=== PATIENT | female | born 1975 | race Caucasian/White ===

== ENCOUNTER 2020-09-10 09:22 | Inpatient (IN) | payer OTHER, SELFPAY ==
[2020-09-10] VITALS (15 sets, daily range): BP systolic 123–167; BP diastolic 74–130; PULSE 56–81; RESP 15–25; TEMP 36.1–36.7; O2SAT 97–100; BMI 44.3
[2020-09-10] MEDS: ONDANSETRON INJ 4 MG/2 ML VIAL IV PUSH (09:26)
[2020-09-10] MEDS: MORPHINE SULFATE (*CRX) 4 MG/ML INJ IV PUSH (09:26)
--- NOTE | 2020-09-10 09:28 | ED.CHESTPAIN ---
HPI - Chest Pain General Chief Complaint: Chest Pain Stated Complaint: Chest Pain Time Seen by Provider: 09/10/20 09:26 History of Present Illness HPI narrative: Patient is a 45-year-old female who presents ER with chest pain. Burning in center of her chest. No radiation. Associated with nausea and shortness of breath. Patient was driving to court when symptoms began. Reports increased stress due to this court date. No previous history of heart disease. Reports possible methamphetamine use yesterday. Related Data Allergies Allergy/AdvReac Type Severity Reaction Status Date / Time No Known Allergies Allergy Verified 09/10/20 09:35 Review of Systems Review of Systems: All systems reviewed & are unremarkable except as noted in HPI and below Constitutional: Constitutional: Denies chills, Denies fever(s) and Reports weakness ENT: Denies nasal congestion and Denies sore throat Cardiovascular: Cardiovascular: Reports chest pain, Denies rapid heart rate and Denies radiating jaw, neck or arm pain Respiratory: Respiratory: Denies cough, Reports dyspnea and Denies wheezing Gastrointestinal: Gastrointestinal: Denies abdominal pain, Denies diarrhea, Reports nausea and Denies vomiting PMFSH Past Medical History Medical History (Updated 09/10/20 @ 09:48 by Frank Abdalla MD) Healthy female adult Surgical History Surgical History (Updated 09/10/20 @ 09:32 by Frank Abdalla MD) No history of previous surgery Social History Social History (Updated 09/10/20 @ 09:32 by Frank Abdalla MD) Smoking status: Current every day smoker Alcohol intake: current Substance use type: amphetamines Exam Narrative: Exam Narrative: GENERAL: Well-appearing, well-nourished, and in no acute distress. HEAD: Normocephalic, atraumatic. EYES: PERRL and EOMI. ENT: Mucous membranes moist. CHEST: Clear to auscultation. No respiratory distress. HEART: Regular rate and rhythm. Normal peripheral pulses. ABDOMEN: Soft, nontender, nondistended. EXTREMITIES: Normal range of motion. No edema. SKIN: Warm, dry, no rash. NEURO: Alert and oriented x3. Course Course Emergency Course: Team alerted and have taken the patient. Patient given aspirin, heparin, and Brilinta. Additionally patient received morphine for pain and Zofran for nausea. Vital Signs Vital signs: Vital Signs Pulse Rate 62 09/10/20 09:25 Respiratory Rate 17 09/10/20 09:25 Blood Pressure 166/130 H 09/10/20 09:25 Pulse Oximetry 100 09/10/20 09:25 Pulse Rate 56 L 09/10/20 09:36 Respiratory Rate 17 09/10/20 09:25 Blood Pressure 166/130 H 09/10/20 09:25 Pulse Oximetry 100 09/10/20 09:25 MDM - Chest Pain ECG Data EKG #1: ECG completion date: 09/10/20 ECG completion time: 09:25 EKG Interpretation: bradycardia (59), sinus rhythm, ST depression (V2), ST elevation (II/III/aVF, V3-6), normal QRS, normal QT and NL axis Discharge Plan Discharge Clinical Impression: ST elevation (STEMI) myocardial infarction Patient Disposition: Still a Patient Condition: Serious
--- NOTE | 2020-09-10 09:31 | ECG_ITS ---
Measurements Intervals [place] Rate: 59 P: 50 MS: 190 QRS: 64 QRSD: 94 T: 96 QT: 447 QTc: 444 Interpretive Statements SINUS BRADYCARDIA INFERIOR ST ELEVATION MYOCARDIAL INFARCT- ACUTE POSTERIOR INFARCT, ACUTE ANTEROLATERAL ST ELEVATION MYOCARDIAL INJURY- ACUTE BASELINE ARTIFACT- I, II, III, AVR, AVL, AVF, V1-V2 ABNORMAL ECG Electronically Signed On 09-10-2020 11:47:08 CDT by Oumar Link D.O.
[2020-09-10] MEDS: TICAGRELOR 90 MG TABLET 180 MG PO (09:36)
--- NOTE | 2020-09-10 09:38 | PC.NURSE ---
937 Pt off floor to labor economist via cart. 927 Pt arrives via personal vehicle from triage, diaphoretic and pale, states she started feeling GERD-like symptoms ~0800 this am, was going to court appt but drove herself here instead. per EKG elevation noted in multiple leads, 100% RA, hypertensive. Pt states I did everything last night, drank all day, 2 packs of cigarettes, and I think I smoked meth
[2020-09-10 09:56] LABS: Basophils Absolute Auto 0.1 K/mm3 (0.0-0.1); Basophils Percent Auto 0.5 % (0.2-1.2); Eosinophils Absolute Auto 0.2 K/mm3 (0-0.3); Eosinophils Percent Auto 1.2 % (0-4.4); Hematocrit 46.1 % (37.0-47.0); Hemoglobin 15.3 g/dL (12.0-15.0); Immature Granulocyte Absolute 0.11 K/mm3 (0.00-0.031); Immature Granulocyte Percent A 0.8 % (0-0.5); Lymphocytes Absolute Auto 3.26 K/mm3 (0.9-3.2); Lymphocytes Percent Auto 22.4 % (18.3-44.2); Mean Corpuscular HGB Conc 33.2 g/dl (32-36); Mean Corpuscular Volume 87.5 fl (80-100); Mean Platelet Volume 9.5 fl (7.4-10.4); Monocytes Percent Auto 6.9 % (2.6-8.5); Neutrophils Absolute Auto 9.9 K/mm3 (1.3-6.7); Neutrophils Percent Auto 68.2 % (45.5-73.1); Platelet Count Result 373 k/mm3 (150-375); Red Blood Count 5.27 M/mm3 (4.2-5.4); Red Cell Distribution Width 13.5 % (11.5-14.5); White Blood Count 14.6 K/mm3 (4.5-10.0)
[2020-09-10 10:19] LABS: Troponin I < 0.012 ng/mL (0.000-0.034)
--- NOTE | 2020-09-10 10:19 | ECG_ITS ---
Measurements Intervals [place] Rate: 67 P: 54 [place]: 170 QRS: 56 QRSD: 101 T: -10 QT: 450 QTc: 476 Interpretive Statements SINUS RHYTHM WITH INTERMITTENT ACCELERATED IDIOVENTRICULAR RHYTHM INFERIOR INFARCT, PROBABLY RECENT ABNORMAL ECG Electronically Signed On 09-10-2020 11:53:19 CDT by Oumar Link D.O.
--- NOTE | 2020-09-10 10:26 | PM.IMHP ---
H&P: HPI History of Present Illness Date/Time: 09/10/20 10:26 Chief Complaint: chest pain Narrative: this is a 45-year-old woman I am seeing the emergency room very briefly as she is being prepared for emergency angiography in the setting of acute ST-elevation myocardial infarction. She began to experience sudden chest pain when she was in a outside of the court house this morning where she had an appearance to make and began to experience severe burning retrosternal chest pain. She presented to the emergency room after this was going on for couple of hours where ECG was clearly diagnostic of acute ST segment elevation NC in ST-elevation in the inferior lateral leads and reciprocal depression in the anterior precordial leads. Reports no previous history of cardiac problems and really has known medical problems what she tells me. The ER physician did obtain a history of the patient using methamphetamine. In this Setting and emergency angiography has been requested and STEMI protocol has been activated. she does have a history of cigarette smoking as well. Review of Systems Review of Systems: ROS unobtainable: Yes unobtainable due to medical condition [facility] Past Medical History Medical History (Updated 09/10/20 @ 09:48 by Frank Abdalla MD) Healthy female adult Surgical History Surgical History (Updated 09/10/20 @ 09:32 by Frank Abdalla MD) No history of previous surgery Social History Social History (Updated 09/10/20 @ 09:32 by Frank Abdalla MD) Smoking status: Current every day smoker Alcohol intake: current Substance use type: amphetamines Meds Home Medications and Allergies Allergies Allergy/AdvReac Type Severity Reaction Status Date / Time No Known Allergies Allergy Verified 09/10/20 09:35 Vital Signs Vital Signs - 24 hr 09/10/20 09:25 09/10/20 09:36 Pulse Rate 62 56 L Respiratory Rate 17 Blood Pressure 166/130 H Pulse Oximetry 100 Exam Const: General: in distress and uncomfortable Other: obese white female to hear full and very frightened regarding the current situation reporting severe retrosternal chest pain HENMT: Mouth: Yes moist mucous membranes Eyes: Sclera: sclerae normal Pupils: Equal, round and reactive pupils present Neck: Neck: supple Other: difficult to assess JVD given her body habitus. No carotid bruits are audible Resp: Effort & Inspection: normal respiratory effort Auscultation: clear to auscultation bilaterally Cardio: Rate: regular rate Rhythm: regular rhythm Other: PMI difficult to palpate S4 is heard , no murmur GI: GI Palp: Yes Soft to palpation Auscultation: normal bowel sounds Skin: General skin exam: normal color Neuro: Cognition (Neuro): normal cognition Extrem: General: normal to inspection H&P: Results Labs Labs: Short CBC 09/10/20 Range/Units 09:44 WBC 14.6 H (4.5-10.0) K/mm3 Hgb 15.3 H (12.0-15.0) g/dL Hct 46.1 (37.0-47.0) % Plt Count 373 (150-375) k/mm3 Cardiac Enzymes 09/10/20 Range/Units 09:44 Troponin I < 0.012 (0.000-0.034) ng/mL Assessment and Plan Additional Plan 45-year-old woman with: Previously healthy apparently history of methamphetamine ingestion and presenting with chest pain and acute ST segment elevation NC. Patient is being brought for emergency Angiography and revascularization. She was given aspirin and a loading dose of Brilinta emergency department. Getachew Gibbs MD [facility]
--- NOTE | 2020-09-10 10:31 | WPDCARDPROC ---
Cardiac Cath Procedure Note Date of procedure:: 09/10/20 Performing physician:: Getachew Gibbs MD Indication:: ST-elevation CA Brief clinical history:: this is a 45-year-old woman who is obese and smokes cigarettes chronically but does not have any other known medical problems. She presents to the hospital with chest pain beginning couple of hours before arrival and obvious ST-elevation CA. Procedure Procedure performed:: Emergency coronary angiography emergency PCI(JULIETTE) to the distal RCA left ventriculography Sedation/Medication given:: no sedation administered case start time 9:48 a.m. case end time 10:12 a.m. Access site:: right femoral artery Estimated blood loss:: 20-30 cc Procedure note:: patient was brought to the cardiac catheterization lab in the emergency setting described above. The femoral triangles were prepped and draped in the usual fashion. Anesthesia was provided in the right groin with 1% lidocaine infiltrated locally. Using modified Seldinger technique a 6 [place]an sheath was placed into the femoral artery. After this I used a 5 [place]an FL4 catheter to engage inject the left coronary artery. Following this I used a 5 [place]an JR4 guiding catheter to engage and inject the right coronary artery. Following this the cineangiograms were reviewed and PCI of the distal RCA was recommended and carried out as detailed below. Prior to PCI she was anticoagulated with bolus and infusion of Angiomax. She had received aspirin and a loading dose of Brilinta in the emergency department. Following reperfusion the patient did have some asymptomatic ventricular arrhythmias which were treated with amiodarone 150 mg IV bolus over 10 minutes. Following PCI as described below the guiding catheters were removed and a 5 [place]an angled pigtail catheter was used to measure left-sided hemodynamics and to injected left ventriculogram in the METCALF projection. After this the case was terminated the sheath was sutured into position she was taken to ICU room 6. For post CA PCI recovery in stable condition there was no procedural complications and there was no evidence of a groin hematoma upon leaving the floating labor gang supervisor. Findings:: Hemodynamics[place] [address] left ventricle 138 over 5 end-diastolic pressure 28. There is no gradient on pullback across the aortic valve. Left ventricle: The LV is mildly enlarged. The inferior posterior segment is akinetic the remainder of the LV is mildly globally hypodynamic. Global ejection fraction is about 45%. The left main coronary artery is nicely patent the left anterior descending is a moderate caliber artery extending down to the apex the LAD is smooth and angiographically normal in appearance the circumflex is a medium caliber artery giving rise to the marginal branches the circumflex and its branches are smooth and angiographically normal in appearance. The right coronary artery is moderate caliber dominant to the posterior circulation it is 100% occluded in the 3rd portion angiographic appearance is consistent with an appropriate about occlusion. Angiographically the vessel is normal prior to the occlusion. Intervention: The 6 [place]an JR4 guiding catheter was used to inject and engage the artery. The 0.014 BMW coronary guidewire was used to cross the occluded segment in the distal RCA. This was done easily and uneventfully. The lesion was then pre-dilated using a 2.5 x 20 mm emerge PTCA balloon. This restored JAIRO 3 flow in the vessel. After flow was restored the patient started having reperfusion arrhythmias which included significant amounts of ventricular tachycardia which was initially asymptomatic and then became more rapid and was complicated by hypotension. We were preparing to shock the patient to terminate the VT but then it slowed down and became hemodynamically stable again and the patient was not counter shocked. He was given any 150 mg for treatment of
--- NOTE | 2020-09-10 10:38 | ADMGEN ---
This patient, Sonia Mccord, was admitted to Intensive Care Unit-6. Patient/family oriented to hospital policies and general routines including ID bracelet, bed and alarms, visiting hours, pain management, procedures, bathroom and other care routines, personal items, smoking policy, room service/diet, and visiting hours. Information on how to activate the Rapid Response Team has been discussed. Patient/Family are encouraged to report perceived risks to care and to ask questions if they do not understand what they are told or what they should do.
--- NOTE | 2020-09-10 11:14 | WPDCNINT ---
Assessment and Plan Assessment and plan (1) ST elevation (STEMI) myocardial infarction: Code(s): I21.3 - ST elevation (STEMI) myocardial infarction of unspecified site Status: Acute Assessment and Plan: patient presented with chest pain, found to have ST elevations in the inferior leads in the ER, was taken to the optical laboratory manager where she had a PTCA/PCI with JULIETTE x1 to distal RCA. Was 45%. - patient currently chest pain-free - Cardiology following the patient, - continue aspirin, carvedilol, Brilinta, losartan, rosuvastatin (2) Tobacco dependence: Code(s): F17.200 - Nicotine dependence, unspecified, uncomplicated Status: Acute Assessment and Plan: patient has a history of tobacco use, counseled patient on cessation of smoking. She did state that she is going to quit (3) Alcohol abuse: Code(s): F10.10 - Alcohol abuse, uncomplicated Status: Acute Assessment and Plan: patient drinks about half to 1 pt of vodka or whiskey daily, she stated she is going to quit drinking - started on thiamine and folic acid, - will watch for alcohol withdrawal (4) Substance abuse: Code(s): F19.10 - Other psychoactive substance abuse, uncomplicated Status: Acute Assessment and Plan: patient has been taking marijuana and methamphetamines to which she says she is going to quit Additional Plan discussed with patient and her mother at bedside updated them with patient's condition and plan of care. I answered all questions. Code status : Full code Critical care time spent: 42 minutes. This dictation may have been done utilizing a voice recognition system. Attempts have been made to correct errors. However, there may be uncorrected grammatical, spelling, and recognition errors present. Due to a high probability of clinically significant, life threatening deterioration, the patient required my highest level of preparedness to intervene emergently and I personally spent this critical care time directly and personally managing the patient. This critical care time included obtaining a history; examining the patient; pulse oximetry; ordering and review of studies; arranging urgent treatment with development of a management plan; evaluation of patient's response to treatment; frequent reassessment; and discussions with other providers. It was exclusive of separately billable procedures and treating other patients and teaching time. Please see Assessment and Plan section and the rest of the note for further information on patient assessment and treatment Scenic Designer Consult Note Consult date: 09/10/20 Time Seen: 10:55 Reason for consult: STEMI, status/post PCI with stent times x1 to distal RCA, EF of 45% HPI: Sonia Mccord is a 45 year old female with history of tobacco abuse, alcohol abuse and substance use, no known cardiac history presented to the ED with complains of substernal burning chest pain 10/10 in intensity, associated with diaphoresis, shortness of breath, nausea. Patient was on her way to the court house which she experiences chest tightness/pain. so she drove to this of all these to get a bottle of water, and pains at significantly increased patient drove to ER at [facility]. EKG showed marked ST elevations in the inferior leads reciprocal T-wave inversions in the anterior leads. Patient was taken to a cardiac optical laboratory manager for emergency PTCA/PCI status post stent x1 to distal RCA, EF of 45%. after balloon dilatation patient went into a V-tach rhythm, initially was asymptomatic but then became more rapid and complicated with hypertension. Discussed with academic affairs manager and they were preparing to shock her with she stabilized hemodynamically. Patient was given amiodarone 150 mg IV x1. Patient's rhythm improved to sinus with PVCs. Patient was transferred to the ICU for further management patient seen and examined the ICU, above history was obtained was obtained from the umesh
[2020-09-10] MEDS: ASPIRIN 81 MG CHEWABLE TABLET PO (11:29)
[2020-09-10] MEDS: LOSARTAN POTASSIUM 25 MG TABLET PO (11:29)
[2020-09-10] MEDS: ROSUVASTATIN 10 MG TABLET PO (11:30)
[2020-09-10] MEDS: carvediloL 6.25 MG TABLET PO ×2 (11:30→20:47)
[2020-09-10 11:46] LABS: Add Urine Microscopic? YES; Appearance Urine Clear (Clear); Bilirubin Urine Negative (Negative); Blood Urine 3+ (Negative); Color Urine Yellow (Yellow); Glucose Urine UA Negative (Negative); Ketones Urine Negative (Negative); Leukocyte Esterase Ur 1+ LEU/UL (Negative); Mucus Urine Rare /lpf; Nitrate Urine Negative (Negative); Protein Urine Negative (Negative); Squamous Epithelial Cell Urine Occasional /hpf (Few); Urobilinogen Urine Negative mg/dL (<2.0)
[2020-09-10 11:49] LABS: Specific Grav Ur 1.031 (1.001-1.035)
[2020-09-10 12:09] LABS: Barbiturate Screen Urine Negative (Negative); Benzodiazepines Screen Urine Negative (Negative)
[2020-09-10 12:14] LABS: Cannabinoid Screen Urine Negative (Negative); Cocaine Screen Urine Negative (Negative); Methadone Screen Urine Negative (Negative); Opiate Screen Urine Positive (Negative); Phencyclidine Screen Urine Negative (Negative)
[2020-09-10 13:04] LABS: INR 1.1; Prothrombin Time 13.6 Seconds (11.1-14.7)
[2020-09-10] MEDS: THIAMINE HCL 100 MG TABLET PO (18:34)
[2020-09-10] MEDS: FOLIC ACID 1 MG TABLET PO (18:35)
[2020-09-10 19:17] LABS: Anion Gap 7 mmol/L (8-16); Blood Urea Nitrogen 11 mg/dL (7-17); Calcium 8.9 mg/dL (8.4-10.2); Carbon Dioxide 25 mmol/L (22-30); Chloride 102 mmol/L (98-107); Estimated CRCL calculation 116 ml/min; Estimated Glomerular Filt Rate > 60; Glucose 117 mg/dL (65-105); Potassium 3.7 mmol/L (3.4-5.0); Sodium 134 mmol/L (137-145)
[2020-09-10 19:32] LABS: Magnesium 1.9 mg/dL (1.6-2.3)
[2020-09-10] MEDS: TICAGRELOR 90 MG TABLET PO (20:47)
[2020-09-11] VITALS (14 sets, daily range): BP systolic 93–131; BP diastolic 55–80; PULSE 53–75; RESP 14–28; TEMP 36.6–37; O2SAT 96–99
--- NOTE | 2020-09-11 | ECHO_ITS ---
Patient Info Name: Sonia Mccord Age: 45 years : 1975 Gender: Female Ht: 65 in Wt: 215 lbs BSA: 2.16 m2 HR: 54 bpm BP: 115 / 63 mmHg Heart Rhythm: Sinus Rhythm Technical Quality: Fair Exam Date: 09/11/2020 11:47 AM Exam Location: [facility] Pulmonary Patient Status: Inpatient Admit Date: 09/10/2020 Staff Ordering Physician: Jennifer Adorno Electrical Checkout Mechanic: [place] Attending Provider: Getachew Gibbs MD Referring Physician: Tila PAUL; Exam Type: CA echo doppler color flow Study Info Indications I50.9 - Heart failure, unspecified Complete two-dimensional, color flow and Doppler transthoracic echocardiogram is performed. Summary 1. Complete two-dimensional, color flow and Doppler transthoracic echocardiogram is performed. 2. Left atrial chamber dimension is mildly enlarged. 3. Mildly dilated ventricle with normal wall thickness. Overall good systolic function with ejection fraction estimated to be 60-65%. However there is akinesis to basal septum and severe hypokinesis of the basal inferior wall. Normal diastolic function. 4. No significant valve disease. 5. Normal sinus rhythm. Left Ventricle Left ventricular chamber dimension is mildly enlarged. Left ventricular systolic function is normal, estimated at 60-65%. There is no increased left ventricular wall thickness. Left ventricular septal wall motion is normal. The left ventricular diastolic function is normal. Right Ventricle Right ventricular chamber dimension is normal. Right ventricular systolic function is normal. Left Atria Left atrial chamber dimension is mildly enlarged. Right Atria Right atrial chamber dimension is normal. Aortic Valve The aortic valve is trileaflet. There is no aortic valve sclerosis. There is no aortic valve stenosis. There is no aortic valve regurgitation. Pulmonic Valve The pulmonic valve is normal. There is no pulmonic valve stenosis. There is no pulmonic regurgitation. Mitral Valve The mitral valve has normal leaflets. There is no mitral valve stenosis. There is no mitral valve regurgitation. Tricuspid Valve The tricuspid valve leaflets are normal. There is no significant tricuspid valve stenosis. There is trace tricuspid valve regurgitation. No pulmonary hypertension, estimated pulmonary arterial systolic pressure is Empty. Pericardium/Pleural The pericardium appears normal. There is no pericardial effusion. Inferior Vena Cava Normal inferior vena cava with >50% collapse upon inspiration consistent with Empty right atrial pressure, Empty. Aorta The aortic root size at the sinus of Valsalva is normal. The prox ascending aorta size is normal. Left Ventricular Outflow Tract Name Value Normal LVOT 2D LVOT Diameter 1.9 cm LVOT Doppler LVOT Peak Gradient 3 mmHg LVOT Mean Gradient 2 mmHg LVOT VTI 21 cm LVOT VTI/AV VTI Ratio 0.6 LVOT Stroke Volume 60 ml LVOT CO 3.2 l/min
--- NOTE | 2020-09-11 05:11 | ECG_ITS ---
Measurements Intervals [place] Rate: 56 P: 51 SD: 170 QRS: 40 QRSD: 96 T: -57 QT: 451 QTc: 439 Interpretive Statements SINUS BRADYCARDIA INFERIOR INFARCT, PROBABLY RECENT WITH SIGNIFICANT T WAVE INVERSIONS ABNORMAL ECG Electronically Signed On 09-11-2020 10:11:10 CDT by Oumar Link D.O.
[2020-09-11 05:14] LABS: Basophils Absolute Auto 0.1 K/mm3 (0.0-0.1); Basophils Percent Auto 0.4 % (0.2-1.2); Eosinophils Absolute Auto 0.2 K/mm3 (0-0.3); Eosinophils Percent Auto 1.6 % (0-4.4); Hematocrit 43.6 % (37.0-47.0); Hemoglobin 14.2 g/dL (12.0-15.0); Immature Granulocyte Absolute 0.07 K/mm3 (0.00-0.031); Immature Granulocyte Percent A 0.6 % (0-0.5); Lymphocytes Absolute Auto 3.09 K/mm3 (0.9-3.2); Lymphocytes Percent Auto 25.2 % (18.3-44.2); Mean Corpuscular HGB Conc 32.6 g/dl (32-36); Mean Corpuscular Hemoglobin 29.1 pg (26-34); Mean Corpuscular Volume 89.3 fl (80-100); Mean Platelet Volume 9.6 fl (7.4-10.4); Monocytes Absolute Auto 0.9 K/mm3 (0.1-0.6); Monocytes Percent Auto 7.3 % (2.6-8.5); Neutrophils Absolute Auto 7.9 K/mm3 (1.3-6.7); Neutrophils Percent Auto 64.9 % (45.5-73.1); Platelet Count Result 320 k/mm3 (150-375); Red Blood Count 4.88 M/mm3 (4.2-5.4); Red Cell Distribution Width 13.6 % (11.5-14.5); White Blood Count 12.3 K/mm3 (4.5-10.0)
[2020-09-11 05:17] LABS: Anion Gap 4 mmol/L (8-16); Blood Urea Nitrogen 11 mg/dL (7-17); Calcium 8.8 mg/dL (8.4-10.2); Carbon Dioxide 28 mmol/L (22-30); Chloride 104 mmol/L (98-107); Estimated CRCL calculation 118 ml/min; Estimated Glomerular Filt Rate > 60; Glucose 104 mg/dL (65-105); Phosphorus 3.6 mg/dL (2.5-4.5); Potassium 4.1 mmol/L (3.4-5.0); Sodium 136 mmol/L (137-145)
[2020-09-11] MEDS: TOLNAFTATE 1% POWDER 45 GM BTL 1 APPLIC TOPICAL ×3 (07:29→20:50)
[2020-09-11] MEDS: carvediloL 6.25 MG TABLET PO ×2 (08:21→20:50)
[2020-09-11] MEDS: TICAGRELOR 90 MG TABLET PO ×2 (08:21→20:50)
[2020-09-11] MEDS: THIAMINE HCL 100 MG TABLET PO (08:21)
[2020-09-11] MEDS: FOLIC ACID 1 MG TABLET PO (08:21)
[2020-09-11] MEDS: ASPIRIN 81 MG CHEWABLE TABLET PO (08:22)
[2020-09-11] MEDS: LOSARTAN POTASSIUM 25 MG TABLET PO (08:22)
[2020-09-11] MEDS: ROSUVASTATIN 10 MG TABLET PO (08:22)
--- NOTE | 2020-09-11 11:19 | PM.PNCARD ---
Progress Note: A&P Assessment and Plan (1) ST elevation (STEMI) myocardial infarction: Code(s): I21.3 - ST elevation (STEMI) myocardial infarction of unspecified site <Jennifer Jeanette LEIDA Adorno - Last Filed: 09/11/20 14:43> Status: Acute <Jennifer KillianLEIDA díaz - Last Filed: 09/11/20 14:43> Assessment and Plan: Presented to the emergency department yesterday with complaints of severe retrosternal chest pain. EKG revealed acute inferior CA. Troponin peaked at 39. She was found to have an abrupt thrombotic occlusion of the distal 3rd portion of the RCA. This was treated successfully using 3.5 mm drug-eluting stent. she was started on aspirin, Brilinta, rosuvastatin, losartan, carvedilol. Today, she is doing extremely well and is denying any chest pain. <LEIDA Espinoza - Last Filed: 09/11/20 14:43> (2) Substance abuse: Code(s): F19.10 - Other psychoactive substance abuse, uncomplicated <Jennifer SheelaLEIDA Leija - Last Filed: 09/11/20 14:43> Status: Acute <LEIDA Espinoza - Last Filed: 09/11/20 14:43> Assessment and Plan: Discussed importance of abstaining from illicit drug use. <LEIDA Espinoza - Last Filed: 09/11/20 14:43> (3) Alcohol abuse: Code(s): F10.10 - Alcohol abuse, uncomplicated <LEIDA Espinoza - Last Filed: 09/11/20 14:43> Status: Acute <LEIDA Espinoza - Last Filed: 09/11/20 14:43> Assessment and Plan: Per the patient she drinks alcohol every other day. She states that she drinks a half a pt to 1 pt of liquor every other day. Apparently, in the past she had been drinking as much as two fifths of liquor every day. I discussed with her the negative impact of alcohol on her health. Counseled her on abstaining from alcohol. <LEIDA Espinoza - Last Filed: 09/11/20 14:43> (4) Tobacco dependence: Code(s): F17.200 - Nicotine dependence, unspecified, uncomplicated <LEIDA Espinoza - Last Filed: 09/11/20 14:43> Status: Acute <LEIDA Espinoza - Last Filed: 09/11/20 14:43> Assessment and Plan: Current smoker. Patient states that she would like to quit smoking and has been successful with quitting using Chantix. She would like to use Chantix again to quit. I will provide her with some Chantix samples from the office. <LEIDA Espinoza - Last Filed: 09/11/20 14:43> Additional Plan Patient states that over the past year she has been noticing lower extremity edema. She thought this was probably caused by her heavy alcohol use. Upon further questioning she also reveals that she has paroxysmal nocturnal dyspnea as well as 2-3 pillow orthopnea. I have ordered an echocardiogram to assess her systolic function. <LEIDA Espinoza - Last Filed: 09/11/20 14:43> patient seen and examined, chart reviewed. Agree with nurse practitioner Jennifer Adorno's assessment and plan. Feels well today and ambulated in the halls with no shortness of breath or chest pain. Lungs clear, no murmur, catheterization site is fine. Labs reviewed. Patient is doing well after her STEMI and RCA stent yesterday. Counseled patient about the need for dual anti-platelet therapy, tobacco cessation, etc.. Hopefully discharge tomorrow. <Tierra Olivera MD - Last Filed: 09/11/20 19:21> Time Spent With Patient Time with patient: 15 - 25 minutes <LEIDA Espinoza - Last Filed: 09/11/20 14:43> Subjective Date/time seen: Cardiology follow up for STEMI Date of service 09/11/20: Patient states she is feeling fantastic today. She says that feeling with a she does today makes her realize how poorly she had been feeling before she came into the hospital and just did not recognize it. She denies any chest pain, shortness of breath, palpitations. she has lots of questions about her diet as well as smoking cessation. I spent a great deal of ti
--- NOTE | 2020-09-11 12:30 | WPDINTPN ---
Progress Note: A&P Assessment and Plan (1) ST elevation (STEMI) myocardial infarction: Code(s): I21.3 - ST elevation (STEMI) myocardial infarction of unspecified site Status: Acute Assessment and Plan: patient presented with chest pain, found to have ST elevations in the inferior leads in the ER, was taken to the photofinishing laboratory worker where she had a PTCA/PCI with JULIETTE x1 to distal RCA. Was 45%. - patient currently chest pain-free - Cardiology following the patient, - continue aspirin, carvedilol, Brilinta, losartan, rosuvastatin (2) Tobacco dependence: Code(s): F17.200 - Nicotine dependence, unspecified, uncomplicated Status: Acute Assessment and Plan: patient has a history of tobacco use, counseled patient on cessation of smoking. She did state that she is going to quit (3) Alcohol abuse: Code(s): F10.10 - Alcohol abuse, uncomplicated Status: Acute Assessment and Plan: patient drinks about half to 1 pt of vodka or whiskey daily, she stated she is going to quit drinking - started on thiamine and folic acid, - will watch for alcohol withdrawal (4) Substance abuse: Code(s): F19.10 - Other psychoactive substance abuse, uncomplicated Status: Acute Assessment and Plan: patient has been taking marijuana and methamphetamines to which she says she is going to quit Additional Plan discussed with patient and her mother at bedside updated them with patient's condition and plan of care. I answered all questions. Code status : Full code Critical care time spent:31 minutes. This dictation may have been done utilizing a voice recognition system. Attempts have been made to correct errors. However, there may be uncorrected grammatical, spelling, and recognition errors present. Due to a high probability of clinically significant, life threatening deterioration, the patient required my highest level of preparedness to intervene emergently and I personally spent this critical care time directly and personally managing the patient. This critical care time included obtaining a history; examining the patient; pulse oximetry; ordering and review of studies; arranging urgent treatment with development of a management plan; evaluation of patient's response to treatment; frequent reassessment; and discussions with other providers. It was exclusive of separately billable procedures and treating other patients and teaching time. Please see Assessment and Plan section and the rest of the note for further information on patient assessment and treatment Subjective Date/time seen: 09/11/20 12:30 Interval history: Reason for consult: STEMI, status/post PCI with stent times x1 to distal RCA, EF of 45% 09/11/20: Pt seen and examined. Pt denies any chest pain, SOB, N/V. minimal PVCs on tele monitor. Good UO, Afebrile, and hemodynamically stable. Review of Systems Review of Systems: All systems reviewed & are unremarkable except as noted in HPI and below Exam Const: General: comfortable and no acute distress HENMT: Mouth: Yes moist mucous membranes Eyes: Sclera: sclerae normal Pupils: Equal, round and reactive pupils present Neck: Neck: supple Thyroid: thyroid normal Lymphatic: lymphadenopathy not noted Resp: Effort & Inspection: normal respiratory effort Auscultation: clear to auscultation bilaterally Cardio: Rate: regular rate Rhythm: regular rhythm GI: Inspection: non-distended GI Palp: Yes Soft to palpation and No Tenderness to palpation present (GI) Auscultation: normal bowel sounds Other: obese : Other: deferred Skin: General skin exam: normal color and no rashes or lesions noted Neuro: Cranial nerves: Yes Equal, round and reactive pupils present Other: patient is awake, alert, oriented x3, nonfocal Extrem: General: normal to inspection, no edema and no pedal edema Other: Right groin site witih no evidence of ecchymosis or hematoma Psych: Men
--- NOTE | 2020-09-11 17:06 | PC.NURSE ---
Patient transferred to room 203, report to Anaya DENNIS. All belongings sent with patient
[2020-09-12] VITALS (17 sets, daily range): BP systolic 90–123; BP diastolic 50–87; PULSE 54–85; RESP 16–19; TEMP 36.3–37.2; O2SAT 93–100
--- NOTE | 2020-09-12 | ECHO_ITS ---
Patient Info Name: Sonia Mccord Age: 45 years : 1975 Gender: Female Ht: 65 in Wt: 254 lbs BSA: 2.36 m2 HR: 75 bpm BP: 102 / 62 mmHg Heart Rhythm: Sinus Rhythm Technical Quality: Good Exam Date: 09/12/2020 1:45 PM Exam Location: [facility] Patient Status: Inpatient Admit Date: 09/10/2020 Staff Ordering Physician: Jennifer Adorno Pig Iron Loader: Corey Spann RDCS, RT Attending Provider: Getachew Gibbs MD Referring Physician: Tila PAUL; Exam Type: CA echo doppler color flow Study Info Indications I50.9 - Heart failure, unspecified Complete two-dimensional, color flow and Doppler transthoracic echocardiogram is performed. Summary 1. Complete two-dimensional, color flow and Doppler transthoracic echocardiogram is performed. 2. Left ventricular chamber dimension is normal. 3. Left ventricular systolic function is normal, estimated at 65-70%. 4. There is mildly increased left ventricular wall thickness. 5. The left ventricular diastolic function is normal. 6. The basal inferior wall is hypokinetic. 7. Very frequent PVCs. Left Ventricle Left ventricular chamber dimension is normal. Left ventricular systolic function is normal, estimated at 65-70%. There is mildly increased left ventricular wall thickness. The left ventricular diastolic function is normal. The basal inferior wall is hypokinetic. All other roy appear normal. Right Ventricle Right ventricular chamber dimension is normal. Right ventricular systolic function is normal. Left Atria Left atrial chamber dimension is normal. Right Atria Right atrial chamber dimension is normal. Atrial Septum Intact interatrial septum visualized by color flow imaging. Aortic Valve The aortic valve is trileaflet. There is no aortic valve sclerosis. There is no aortic valve stenosis. There is trace aortic valve regurgitation. Pulmonic Valve The pulmonic valve is normal. There is no pulmonic valve stenosis. There is trace pulmonic regurgitation. Mitral Valve The mitral valve has normal leaflets. There is no mitral valve stenosis. There is trace mitral valve regurgitation. Tricuspid Valve The tricuspid valve leaflets are normal. There is no significant tricuspid valve stenosis. There is trace tricuspid valve regurgitation. Other Findings Very frequent PVCs. Pericardium/Pleural The pericardium appears normal. There is no pericardial effusion. Inferior Vena Cava Dilated inferior vena cava with <50% collapse upon inspiration consistent with elevated right atrial pressure, 10 mmHg. Aorta The aortic root size at the sinus of Valsalva is normal. The prox ascending aorta size is normal. Left Ventricular Outflow Tract Name Value Normal LVOT 2D LVOT Diameter 2.1 cm LVOT Doppler LVOT Peak Gradient 3 mmHg LVOT Mean Gradient 2 mmHg LVOT VTI 30 cm LVOT VTI/AV VTI Ratio 0.7 LVOT Stroke Volume 103 ml LVOT CO
[2020-09-12 05:01] LABS: Cholesterol 140 mg/dL (0-200); HDL Direct 36 mg/dL; Triglycerides 178 mg/dL (<150)
[2020-09-12 05:11] LABS: LDL Cholesterol Direct 70 mg/dL
--- NOTE | 2020-09-12 08:14 | ECG_ITS ---
Measurements Intervals [place] Rate: 68 P: 60 WA: 177 QRS: 29 QRSD: 100 T: -59 QT: 464 QTc: 495 Interpretive Statements SINUS RHYTHM VENTRICULAR COUPLETS AND VENTRICULAR PREMATURE COMPLEXES INFERIOR INFARCT, PROBABLY RECENT WITH SIGNIFICANT T WAVE INVERSIONS ABNORMAL ECG Electronically Signed On 09-12-2020 9:46:43 CDT by Oumar Link D.O.
--- NOTE | 2020-09-12 08:30 | WPDMODSED ---
Moderate Sedation Note-Pt Data Patient Data Allergies Allergy/AdvReac Type Severity Reaction Status Date / Time No Known Allergies Allergy Verified 09/10/20 10:50 Home Medications Medication Instructions Recorded Confirmed Type omeprazole 20 mg PO DAILY 09/10/20 09/10/20 History Current Medications: Active Medications Aspirin (Aspirin 81 Mg Chewable Tablet) 81 mg PO DAILY@0800 [facility] Last Admin: 09/12/20 08:34 Dose: 81 mg Documented by: Carvedilol (Carvedilol 6.25 Mg Tablet) 6.25 mg PO Q12HR [facility] Last Admin: 09/11/20 20:50 Dose: 6.25 mg Documented by: Folic Acid (Folic Acid 1 Mg Tablet) 1 mg PO DAILY [facility] Stop: 09/14/20 09:01 Last Admin: 09/11/20 08:21 Dose: 1 mg Documented by: Lidocaine HCl/Dextrose (Lidocaine Hck In D5w 4mg/Ml) 2 gm in 500 mls @ 30 mls/hr IV CONT .[id number] [facility] Losartan Potassium (Losartan Potassium 25 Mg Tablet) 25 mg PO DAILY [facility] Last Admin: 09/11/20 08:22 Dose: 25 mg Documented by: Nitroglycerin (Nitroglycerin Sl 0.4 Mg Tablet) 0.4 mg SUBLINGUAL Q5MIN PRN PRN Reason: Chest Pain Rosuvastatin Calcium (Rosuvastatin 10 Mg Tablet) 10 mg PO DAILY [facility] Last Admin: 09/11/20 08:22 Dose: 10 mg Documented by: Thiamine HCl (Thiamine Hcl 100 Mg Tablet) 100 mg PO QAM [facility] Stop: 09/14/20 09:01 Last Admin: 09/11/20 08:21 Dose: 100 mg Documented by: Ticagrelor (Ticagrelor 90 Mg Tablet) 90 mg PO Q12HR [facility] Last Admin: 09/12/20 08:34 Dose: 90 mg Documented by: Tolnaftate (Tolnaftate 1% Powder 45 Gm Btl) 1 applic TOPICAL Q12HR [facility] Last Admin: 09/11/20 20:50 Dose: 1 applic Documented by: Sedation/Anesthesia: No previous sedation/anesthesia problems (including family history). [facility] Past Medical History Medical History Healthy female adult Surgical History Surgical History No history of previous surgery Social History Social History (Updated 09/10/20 @ 09:32 by Frank Abdalla MD) Smoking packs per day: 1 Smoking cigarettes per day: 20.0 Years smoked: 15 Smoking pack-years: 15.00 Smoking status: Current every day smoker Tobacco type: cigarettes Alcohol intake: current Substance use: current Substance use type: marijuana and methamphetamine Other substance usage details: pint vodka daily; occasional marijuana use, 2 years on/off meth Gender identity (if verbalized by the patient): Female Sexual Orientation (if Verbalized by the Patient): Straight or Heterosexual Spiritual care concerns: No Mod Sed Physical Exam Physical Exam Pre Procedural Exam: Normal: Appearance, Eyes, Ears, Nose, Neck, Throat, Airway, Lungs, Heart Size, Heart Rate, Heart Rhythm, Neuro Exam, Abdomen, Liver, Kidneys, Spleen, Breasts, Genitalia, Extremities and Skin Hours since solid foods: 8 Hours since liquid intake: 8 Internal Medicine - PN: Obj Da Vital Signs Vital Signs: Vital Signs - 24 hr 09/11/20 12:00 09/11/20 14:00 09/11/20 16:00 Temperature 36.6 C 37.0 C Pulse Rate 58 L 65 68 Respiratory Rate 14 16 Blood Pressure 96/60 L 102/67 Pulse Oximetry 98 97 09/11/20 18:00 09/11/20 20:00 09/11/20 20:50 Temperature 36.8 C Pulse Rate 64 56 L 63 Respiratory Rate 16 Blood Pressure 96/55 L Pulse Oximetry 99 09/11/20 22:00 09/12/20 00:00 09/12/20 02:00 Temperature 36.3 C L Pulse Rate 70 58 L 58 L Respiratory Rate 16 Blood Pressure 90/50 L Pulse Oximetry 100 09/12/20 04:00 09/12/20 06:00 09/12/20 08:00 Temperature 36.8 C 36.5 C Pulse Rate 64 59 L 54 L Respiratory Rate 16 16 Blood Pressure 97/65 L 111/55 L Pulse Oximetry 100 99 Intake/Output Intake/Output: Intake & Output 09/09/20 09/10/20 09/11/20 09/12/20 23:59 23:59 23:59 23:59 Intake Total 290 1330 870 Output Total 800 Balance -510 1330 870 Meds/Results Medications: Active Medications Generic Name Dose Route Start Last Admin Trade
--- NOTE | 2020-09-12 08:30 | WPDHPUPDATE1 ---
History and Physical Update Update Date/Time: 09/12/20 830am History and Physical has been reviewed, including an updated exam of the patient. There are NO changes in the patient's condition. Risks, benefits, and alternatives have been discussed and questions answered. Patient agrees to proceed with procedure.
[2020-09-12] MEDS: TICAGRELOR 90 MG TABLET PO (08:34)
[2020-09-12] MEDS: ASPIRIN 81 MG CHEWABLE TABLET PO (08:34)
[2020-09-12 08:55] LABS: Anion Gap 8 mmol/L (8-16); Blood Urea Nitrogen 13 mg/dL (7-17); Calcium 8.8 mg/dL (8.4-10.2); Carbon Dioxide 24 mmol/L (22-30); Chloride 102 mmol/L (98-107); Estimated CRCL calculation 113 ml/min; Estimated Glomerular Filt Rate > 60; Glucose 99 mg/dL (65-105); Magnesium 2.1 mg/dL (1.6-2.3); Potassium 4.1 mmol/L (3.4-5.0); Sodium 134 mmol/L (137-145)
[2020-09-12] MEDS: MAGNESIUM SULF 2 GM/WATER 50ML 2 GM/50 ML BAG IVPB (09:00)
--- NOTE | 2020-09-12 09:20 | PM.PNCARD ---
Progress Note: A&P Additional Plan 1- Inferior STEMI 2- recurrent nonsustained ventricular tachycardia this morning 3- tobacco use 4- alcohol abuse this morning patient had torsade de pointes and frequent nonsustained ventricular contractions. She has mild chest discomfort. EKG shows deep T inversions inferior leads with prolonged QTC interval which is unchanged from the EKG done after the cardiac catheterization. I was on bedside observing the EKG. Her serum potassium 4.1 and magnesium 2.1. It due to this recurrent ventricular tachycardia, concern about occlusion of the stent. Risks and benefits of cardiac catheterization discussed with the patient she agrees to proceed. meanwhile we will administer IV lidocaine and plan to transition to p.o. mexilitine. Time Spent With Patient Time with patient: Greater than 35 minutes Subjective Date/time seen: 09/12/20 09:20 Interval history: Reason for consult: STEMI, status/post PCI with stent times x1 to distal RCA, EF of 45% 09/11/20: Pt seen and examined. Pt denies any chest pain, SOB, N/V. minimal PVCs on tele monitor. Good UO, Afebrile, and hemodynamically stable. date of service 09/12/2020- this morning she has been having very frequent premature ventricular contractions. She had 1 episode of torsade de [place]. she is feeling funny in her chest. She is very anxious. EKG shows deep T inversions in the inferior leads and prolonged QTC interval. Review of Systems Review of Systems: ROS unobtainable: Yes unobtainable due to medical condition Constitutional: Constitutional: Denies fatigue, Denies headache(s), Denies lethargy and Denies weakness Eyes: Eyes: Denies change in vision ENT: Reports Normal hearing present, Denies headache(s) and Denies neck pain Cardiovascular: Cardiovascular: Reports chest pain, Reports pedal edema, Reports leg edema, Denies lightheadedness, Reports palpitations, Denies dyspnea and Denies dyspnea on exertion Respiratory: Respiratory: Denies dyspnea and Denies dyspnea on exertion Gastrointestinal: Gastrointestinal: Denies abdominal pain Genitourinary: Genitourinary: Denies pelvic pain Musculoskeletal: Musculoskeletal: Denies back pain and Denies neck pain Integumentary/Breasts: Skin/Breast: Reports pruritus Neurologic: Reports Normal hearing present, Denies headache(s) and Denies weakness Psychiatric: Psychiatric: Denies anxiety and Denies depression Endocrine: Endocrine: Denies fatigue and Reports palpitations Hematologic/Lymphatic: Hematologic/Lymphatic: Denies easy bleeding and Denies easy bruising Exam Const: General: in distress and uncomfortable Other: obese white female to hear full and very frightened regarding the current situation reporting severe retrosternal chest pain HENMT: Mouth: Yes moist mucous membranes Eyes: Sclera: sclerae normal Pupils: Equal, round and reactive pupils present Neck: Neck: supple Other: difficult to assess JVD given her body habitus. No carotid bruits are audible Resp: Effort & Inspection: normal respiratory effort Auscultation: clear to auscultation bilaterally Cardio: Rhythm: abnormal rhythm Heart sounds: no murmurs Other: PMI difficult to palpate S4 is heard , no murmur GI: Auscultation: normal bowel sounds Skin: General skin exam: normal color Rashes: rashes noted Other: R groin catheter insertion site is free from any redness, swelling, pain, hematoma, bleeding. Neuro: Cranial nerves: Yes Equal, round and reactive pupils present and Yes Normal hearing present Cognition (Neuro): normal cognition Speech: normal speech Extrem: General: normal to inspection, no edema and no pedal edema Psych: Mental Status: mental status grossly normal Affect: normal affect Objective Data Vital Signs Vital Signs: Vital Signs - 24 hr 09/11/20 10:00 09/11/20 12:00 09/11/20 14:00 Temperature 36.6 C Pulse Rate 72 58 L 65 Respiratory Rate 16 14 Blood Pressure 115/63 96/60 L Pulse
--- NOTE | 2020-09-12 09:23 | PC.NURSE ---
Cardiopulmonary Rehab Services flyer was given to patient in cardiac admissions folder.
--- NOTE | 2020-09-12 10:15 | WPDCARDPROC ---
Cardiac Cath Procedure Note Date of procedure:: 09/12/20 Performing physician:: Queenie García MD Date of service September 12, 2020 Indication:: recurrent ventricular tachycardia and torsade de pointes Brief clinical history:: this is 45-year-old lady who was admitted to the hospital with inferior STEMI and underwent stenting to distal RCA. This morning there were lots of ventricular is tachycardia and torsade de pointes. EKG shows deep T inversions inferior leads with prolonged QT interval. Electrolytes were unremarkable. Risks and benefits of cardiac catheterization discussed with the patient she agrees to proceed. Procedure Procedure performed:: 1-Moderate sedation that started at 9:42 a.m.and ended at 10:03 a.m. total duration 21 minutesusing 2mg of Versed and 50mcg fentanyl. The registered nurse was alexa grove 2-Selective left and right coronary angiogram. 3-Left heart catheterization with measurement of LVEDP and measurement of gradient across aortic valve. 4-Right common femoral arterial angiogram. 5-Deployment of 6 [place] Angio-Seal. Sedation/Medication given:: Moderate sedation. Access site:: Right common femoral artery. Estimated blood loss:: 10cc Procedure note:: After informed consent patient was brought in to label tacker with the was draped and prepped in usual manner. Moderate sedation was given and the right groin was infiltrated using 1% lidocaine. Five Danish sheath was obtained using micropuncture needle and the modified Seldinger technique. Selective left coronary angiogram was done using JL4 catheter with the tip of the catheter placed in the left main coronary artery. Selective right coronary angiogram was done using JR4 catheter with the tip of the catheter placed to the right coronary artery. After that the [id number] was advanced across the aortic valve into the left ventricle with measurement of LVEDP and measurement of gradient across aortic valve. Right common femoral arterial angiogram was done. Findings:: 1- left coronary artery is a large artery that divides into large LAD, large circumflex artery. Left main is free of disease. 2- left anterior descending artery is a large artery that runs and wraps around the apex. Free of disease. Medium-sized diagonal branch free of disease. 3- leftcircumflex artery is a large artery Free of disease. Large OM1 branch free of disease. 4- right coronary artery is Large artery and dominant and has patent stent distally. There was catheter-induced vasospasm proximally that resolved after repositioning the catheter. 5- LVEDP was 10 mm Hg and no gradient across aortic valve. 6- opening arterial pressure was 120/80 and closing pressure was 110/70 7- right femoral artery angiogram shows no significant disease in the right common femoral artery. Conclusion:: patent stent in the distal RCA and otherwise no CAD. the recurrent ventricular tachycardia is not related to occluded stent. Assessment and Plan Additional Plan 1- Recommend starting patient on lidocaine drip and transition to mexiletine tomorrow. 2- titrate beta-toshia 3- continue aspirin and Brilinta
[2020-09-12] MEDS: TOLNAFTATE 1% POWDER 45 GM BTL 1 APPLIC TOPICAL (10:41)
[2020-09-12] MEDS: FOLIC ACID 1 MG TABLET PO (11:11)
[2020-09-12] MEDS: PANTOPRAZOLE 40 MG TABLET PO (11:11)
[2020-09-12] MEDS: SODIUM CHLORIDE 0.9% IV 1,000 ML 100 ML IV CONT (11:11)
--- NOTE | 2020-09-12 12:23 | WPDINTPN ---
Progress Note: A&P Assessment and Plan (1) Nonsustained ventricular tachycardia: Code(s): I47.2 - Ventricular tachycardia Status: Acute Assessment and Plan: on 09/12/2020 patient developed VTACH and Torsades. she was taken to the laboratory operations coordinator for repeat angiogram, found to have patent distal RCA stent. No coronary artery disease otherwise. - patient was started on lidocaine infusion - cardiology following closely - will switch lidocaine infusion to mexiletine in a.m. tomorrow per nuclear monitoring technician (2) ST elevation (STEMI) myocardial infarction: Code(s): I21.3 - ST elevation (STEMI) myocardial infarction of unspecified site Status: Acute Assessment and Plan: patient presented with chest pain, found to have ST elevations in the inferior leads in the ER, was taken to the laboratory operations coordinator where she had a PTCA/PCI with JULIETTE x1 to distal RCA. Was 45%. - patient currently chest pain-free - Cardiology following the patient, - continue aspirin, carvedilol, Brilinta, losartan, rosuvastatin (3) Tobacco dependence: Code(s): F17.200 - Nicotine dependence, unspecified, uncomplicated Status: Acute Assessment and Plan: patient has a history of tobacco use, counseled patient on cessation of smoking. She did state that she is going to quit (4) Alcohol abuse: Code(s): F10.10 - Alcohol abuse, uncomplicated Status: Acute Assessment and Plan: patient drinks about half to 1 pt of vodka or whiskey daily, she stated she is going to quit drinking - started on thiamine and folic acid, - will watch for alcohol withdrawal (5) Substance abuse: Code(s): F19.10 - Other psychoactive substance abuse, uncomplicated Status: Acute Assessment and Plan: patient has been taking marijuana and methamphetamines to which she says she is going to quit Additional Plan discussed with patient and her mother at bedside updated them with patient's condition and plan of care. I answered all questions. Code status : Full code Critical care time spent: 33 minutes. This dictation may have been done utilizing a voice recognition system. Attempts have been made to correct errors. However, there may be uncorrected grammatical, spelling, and recognition errors present. Due to a high probability of clinically significant, life threatening deterioration, the patient required my highest level of preparedness to intervene emergently and I personally spent this critical care time directly and personally managing the patient. This critical care time included obtaining a history; examining the patient; pulse oximetry; ordering and review of studies; arranging urgent treatment with development of a management plan; evaluation of patient's response to treatment; frequent reassessment; and discussions with other providers. It was exclusive of separately billable procedures and treating other patients and teaching time. Please see Assessment and Plan section and the rest of the note for further information on patient assessment and treatment Subjective Date/time seen: 09/12/20 12:23 Interval history: Reason for consult: STEMI, status/post PCI with stent times x1 to distal RCA, EF of 45% 09/12/20: Pt had transferred to IMU on 09/11/2020 and this morning developed VTACH and Torsades. Patient was taken to the laboratory operations coordinator for repeat angiogram, found to have patent distal RCA stent. No coronary artery disease otherwise. patient continues to intermittent ectopy and short runs V-tach. Hemodynamically stable, denies any chest pain, shortness of breath, nausea vomiting. Urine output has been adequate Review of Systems Review of Systems: All systems reviewed & are unremarkable except as noted in HPI and below Exam Const: General: comfortable and no acute distress HENMT: Mouth: Yes moist mucous membranes Eyes: Sclera: sclerae normal Pupils: Equal, round and reactive pupils present Neck: Neck:
[2020-09-12] MEDS: ACETAMINOPHEN 500 MG TABLET 1000 MG PO (12:26)
[2020-09-12] MEDS: carvediloL 6.25 MG TABLET PO (12:43)
[2020-09-12] MEDS: ROSUVASTATIN 10 MG TABLET PO (12:43)
[2020-09-12] MEDS: LOSARTAN POTASSIUM 25 MG TABLET PO (12:43)
[2020-09-12] MEDS: THIAMINE HCL 100 MG TABLET PO (12:43)
--- NOTE | 2020-09-12 14:47 | PM.TDS ---
Transfer Discharge Sum: Prov Provider Date of admission: 09/10/20 09:30 Primary care physician: UNKNOWN,DOCTOR Admitting clinician: Getachew Gibbs MD Consults: 09/10/20 10:19 Cardiopulmonary Rehabilitation Consult Routine Comment: Consult Plan: Evaluate for Eligibility 09/12/20 13:10 Consult to Physician Routine Comment: Consulting Provider: Ashanti Garnica physically impaired teacher/MD group to consult: roto rooter operator Reason for consultation: icu transfer Has provider been notified: Yes DS: Admitting Diagnosis Admitting Diagnosis Admitting Diagnosis: Chest pain DS: Discharge Diagnosis Discharge Diagnosis (1) ST elevation (STEMI) myocardial infarction: Code(s): I21.3 - ST elevation (STEMI) myocardial infarction of unspecified site Status: Acute Assessment and Plan: Presented to the emergency department yesterday with complaints of severe retrosternal chest pain. EKG revealed acute inferior AK. Troponin peaked at 39. She was found to have an abrupt thrombotic occlusion of the distal 3rd portion of the RCA. This was treated successfully using 3.5 mm drug-eluting stent. She was started on aspirin, Brilinta, rosuvastatin, losartan, carvedilol. Today, she developed ventricilar tachycardia and Torsades de pointes and was taken to the geophysical laboratory director to assess for any stent occlusion of which none was found. (2) Nonsustained ventricular tachycardia: Code(s): I47.2 - Ventricular tachycardia Status: Acute Assessment and Plan: This morning, ventricular tachycardia and Torsades de pointes was noted on telemetry. She also began to have very frequent ectopy, frequent PVCs. An EKG was performed that demonstrated sinus rhythm with very frequent PVCs, prolonged QT interval. She returned to the geophysical laboratory director to assess for any occlusion of her recently placed stent. The stent was patent. She was initiated on a lidocaine drip however she continued to have frequent runs of ventricular tachycardia on the lidocaine drip. The longest run of VT was 26 beats. She was then initiated on mexiletine. [facility] has been initiated. (3) Substance abuse: Code(s): F19.10 - Other psychoactive substance abuse, uncomplicated Status: Acute Assessment and Plan: Discussed importance of abstaining from illicit drug use. (4) Alcohol abuse: Code(s): F10.10 - Alcohol abuse, uncomplicated Status: Acute Assessment and Plan: Per the patient she drinks alcohol every other day. She states that she drinks a half a pt to 1 pt of liquor every other day. Apparently, in the past she had been drinking as much as two fifths of liquor every day. I discussed with her the negative impact of alcohol on her health. Counseled her on abstaining from alcohol. (5) Tobacco dependence: Code(s): F17.200 - Nicotine dependence, unspecified, uncomplicated Status: Acute Assessment and Plan: Current smoker. Patient states that she would like to quit smoking and has been successful with quitting using Chantix. She would like to use Chantix again to quit. May not be the best option for her at this time due to her current arrhythmias. We will continue nicotine counseling as an outpatient. Transfer Discharge Sum: Med Medications Active and Home Medications: Home Medications omeprazole 20 mg PO DAILY 09/10/20 [History Confirmed 09/10/20] Active Medications Acetaminophen (Acetaminophen 500 Mg Tablet) 1,000 mg PO Q6H PRN PRN Reason: Mild Pain (1-3) or Fever Last Admin: 09/12/20 12:26 Dose: 1,000 mg Documented by: Al Hydrox/Mg Hydrox/Simethicone (Mag Hydrox/Al Hydrox/Simeth 30 Ml Udc) 30 ml PO Q4H PRN PRN Reason: Indigestion Aspirin (Aspirin 81 Mg Chewable Tablet) 81 mg PO DAILY@0800 [facility] Last Admin: 09/12/20 08:34 Dose: 81 mg Documented by: Carvedilol (Carvedilol 6.25 Mg Tablet) 6.25 mg PO Q12HR [facility] Last Admin: 09/12/20 12:43
== END 2020-09-12 17:24 | disposition short-term general hospital (02) | DRG 174 ==
LOC: ANHED 09:30 → ANHICU 09:34 → ANHIMU 09-12 07:20 → ANHICU 09-15 15:01 → ANHIMU 09-15 15:01
PROVIDERS: Internal Medicine; Internal Medicine Cardiovascular Disease; Nurse Practitioner; Admitting Provider Specialist; Emergency Provider Emergency Medicine; PCP Family Medicine; Visit Provider Internal Medicine Cardiovascular Disease
PROC: 4A023N7 Measurement of Cardiac Sampling and Pressure, Left Heart, Percutaneous Approach (ICD-10-PCS; CPT 93452; principal; 2020-09-10 09:35)
PROC: 027034Z Dilation of Coronary Artery, One Artery with Drug-eluting Intraluminal Device, Percutaneous Approach (ICD-10-PCS; 2020-09-10 09:35)
DX: I21.19 ST elevation (STEMI) myocardial infarction involving other coronary artery of inferior wall (principal); F15.10 Other stimulant abuse, uncomplicated; F10.10 Alcohol abuse, uncomplicated; I47.1 Supraventricular tachycardia; F17.210 Nicotine dependence, cigarettes, uncomplicated
CPT/HCPCS: 36415; 80048; 80061; 80307; 81001; 83735; 84100; 84484; 85025; 85610; 85730; 93005; 93306; 93458; 96374; 96375; 99285; A9270; C1725; C1760; C1769; C1874; C1887; C1894; C9606; G0269; J0282; J0461; J1644; J2001; J2250; J2270; J2405; J3010; J3475; J7030; J7040

== ENCOUNTER 2024-04-26 17:45 | Emergency (ER) | payer OTHER, SELFPAY ==
--- OUTSIDE RECORDS SUMMARY | 2024-04-26 17:50 | XMS_ITS | Encounter Summary ---
Author Organization [facility] Address [address] [place] [address] Care Team Providers Care Seed Service Advisor Name Role Phone Kendall Peck MD Primary Care Provider [phone] Encounter Details Date Type Department Care Team (Late st Contact Info) Description 08/12/2018 Abstract SFL CONVERSION [address] [place] [address] , Generic Conversion, Social History Tobacco Use Types Packs/Day Years Used Date Smoking Tobacco: Never Assessed Comments Unknown Sex and Gender Information Value Date Recorded Sex Assigned at Female 09/12/2023 7:58 AM CDT Legal Sex Female 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
--- OUTSIDE RECORDS SUMMARY | 2024-04-26 17:50 | XMS_ITS | Clinical Summary ---
Author Organization 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 Gender Identity Female 09/12/2023 7:58 AM CDT Sexual Orientation Straight 09/12/2023 7: 58 AM CDT Plan of Treatment Health Maintenance Due Date Last Done Comments Cervical Cancer Screening Pa p Smear (Age 30 to 64) Every 3 Years 1977 Colorectal Cancer Screening Colonoscopy (10 Years) 1977 Annual Physical 01/07/1980 Hepatitis C 1995 DTaP, Tdap and Td Vaccines ( 1 - Tdap) 01/07/1996 Hepatitis B Vaccines (1 of 3 - 19+ 3-dose series) 01/07/1996 Cervical Cancer Screening Pa p with HPV Testing (Age 30 to 64) Every 5 Years 2007 Cervical Cancer Screening with HPV 2007 Mammogram Screening 2017 COVID-19 Vaccine (2023-2 5 season) 2023 11/09/2020 Influenza Adult (#1) 2023 Meningococcal B Vaccine Aged Out No l onger eligible based on patient's age to complete this topic Meningococcal Vaccine Aged Out No laron jose eligible based on patient's age to complete this topic Pneumococcal Vaccine: Pediat rics (0 to 5 Years) and At-Risk Patients (6 to 64 Years) Aged Out No longer eligi ble based on patient's age to complete this topic RSV Immunizations Under 20 Months Aged Out No longer eligible based on patient's age to complete this topic [place] [address] [place] [address] [facility] Care Teams Title Searcher Relationship Specialty Start Date End Date Kendall Peck MD [address] [place] [address] PCP - General FAMILY PRACTICE 11/02/18
--- OUTSIDE RECORDS SUMMARY | 2024-04-26 17:50 | XMS_ITS | Clinical Summary ---
Author Organization [facility] Address [address] [place] [address] Phone Care Team Providers Care Vehicle Check In Clerk Name Role Phone Kendall Peck MD Primary Care Provider [phone] Provider, Unknown Unavailable Unavailable Allergies No known active allergies Medications No known medications Active Problems No known active problems Social History Tobacco Use Types Packs/Day Years Used Date Smoking Tobacco: Never Assessed Comments Unknown Sex and Gender Information Value Date Recorded Sex Assigned at Female 11/12/2023 12:34 AM CDT Legal Sex Female 11:09 AM CDT Gender Identity Female 11/12/2023 12:34 AM CDT Sexual Orientation Straight 11/12/2023 12 :34 AM CDT Plan of Treatment Health Maintenance Due Date Last Done Comments Hepatitis C Virus (HCV) Screening 1977 TdaP Immunization 1977 Hepatitis B Immunization (1 of 3 - 19+ 3-dose series) 01/07/1996 Pap Smear 1998 Cervical Cancer Screening (CCS) 2007 HPV/Cotest 2007 Discussion re Starting/Frequ ency of Mammograms 2017 Colonoscopy 2022 Colorectal Cancer Screening 2022 Influenza Immunization (#1) 2023 SARS-COV-2 Immunization ( season) 2023 11/09/2020 Respiratory Syncytial Virus (RSV) Immunization (Adult) (1 - 1-dose 75+ series) 01/07/2052 Meningococcal Immunization (ACWY) Aged Out No longer eligible based on patient's age to complete this topic Pneumococcal Immunization Combined Aged Out No longer eligible based on patient's age to complete this topic Rotavirus Immunization Aged Out No lo nger eligible based on patient's age to complete this topic Insurance MEDICAID AETNA [facility] MEDICAID AETNA [facility] Care Teams Vehicle Check In Clerk Relationship Specialty Start Date End Date Kendall Peck MD [address] [place] [address] PCP - General Family Medicine 02/19/21 Provider, Unknown UNKNOWN 02/19/21
[2024-04-26 17:58] VITALS: BP 119/72; PULSE 99; RESP 16; TEMP 36.6; O2SAT 99
--- NOTE | 2024-04-26 18:09 | ED.FEMALEGU ---
HPI - Female Genitourinary General Chief complaint: Urogenital-Female Stated complaint: STD Exposure Time Seen by Provider: 04/26/24 18:11 Source: patient and RN notes reviewed Mode of arrival: ambulatory Limitations: no limitations History of Present Illness HPI Narrative: 49-year-old female presented for possible exposure to Trichomonas. States she was notified by a recent sexual partner that he had Trichomonas. She said their last unprotected sexual contact was 3-4 weeks ago. Patient endorses a watery discharge. States she is in perimenopause and has occasional cramping for several months. denies hematuria, nausea, vomiting, abdominal pain, flank pain, constipation, diarrhea, fevers or chills. Related Data Home Medications ?Medication ?Instructions ?Recorded ?Confirmed ?Last Taken ?Type omeprazole 20 mg tablet,delayed 20 mg PO DAILY 09/10/20 04/26/24 Unknown History release Allergies Allergy/AdvReac Type Severity Reaction Status Date / Time No Known Allergies Allergy Verified 04/26/24 17:57 Review of Systems Review of Systems: CONSTITUTIONAL: Denies body aches, fever, chills, or sweats. CARDIOVASCULAR: Denies chest pain, palpitations, or edema. RESPIRATORY: Denies cough or dyspnea. GASTROINTESTINAL: Denies abdominal pain, nausea, vomiting, or diarrhea. GENITOURINARY: Reports vaginal discharge denies dysuria, frequency, urgency, hematuria, flank pain SKIN: Denies rash, itching, or wounds. MUSCULOSKELETAL: Denies back pain or myalgia. [facility] Past Medical History Medical History Healthy female adult Surgical History Surgical History No history of previous surgery Social History Social History Smoking packs per day: 1 Smoking cigarettes per day: 20.0 Years smoked: 15 Smoking pack-years: 15.00 Smoking status: Current every day smoker Tobacco type: cigarettes Alcohol intake: current Substance use: current Substance use type: marijuana and methamphetamine Other substance usage details: pint vodka daily; occasional marijuana use, 2 years on/off meth Gender identity (if verbalized by the patient): Female Sexual Orientation (if Verbalized by the Patient): Straight or Heterosexual Spiritual care concerns: No Comments At time of signature, I have reviewed and agree with nursing past medical, surgical, social and family history unless otherwise noted. Please see nursing chart for further information. There is no relevant family history pertinent to the presenting complaint Exam Narrative: GENERAL: Well-appearing and in no acute distress. ENT: Mucous membranes pink and moist. NECK: Normal AROM. Supple. CHEST: No respiratory distress. Clear to auscultation. HEART: Regular rate and rhythm. ABDOMEN: Soft, nontender, nondistended, normal active bowel sounds. No CVA tenderness SKIN: Warm, dry, no rash. NEURO: No focal deficits. Alert and oriented x3. Gait steady. PSYCH: Normal affect. Course Course Emergency Course: Patient is aware of diagnosis, understands and agrees to treatment plan. Anticipatory guidance given. Patient agrees to follow-up as directed and is aware of reasons to seek care at the emergency department. Portions of this record may have been created with voice recognition software Level of Care: Express Care Visit Vital Signs Vital signs: Vital Signs Temperature 97.8 F 04/26/24 17:58 Pulse Rate 99 04/26/24 17:58 Respiratory Rate 16 04/26/24 17:58 Blood Pressure 119/72 04/26/24 17:58 Pulse Oximetry 99 04/26/24 17:58 Temperature 97.8 F 04/26/24 17:58 Pulse Rate 99 04/26/24 17:58 Respiratory Rate 16 04/26/24 17:58 Blood Pressure 119/72 04/26/24 17:58 Pulse Oximetry 99 04/26/24 17:58 Reviewed MDM - Female Genitourinary MDM Narrative Medical decision making narrative: Patient presenting with concern for STD. Urine specimen collected for GC, chlamydia, trich. Informed Pt will be contacted w/ results when they become available if they are positive. Discussed with patient that it takes up to 7 days for results of cultures to be released and explained that we may treat empirically at this time. Agreeable to treatment for trichomonas at this time. I have instructed the patient to return to the ER at any time if there are any new or worsening symptoms. The patient expressed understanding of and agreement with this plan. Differential Diagnosis Differential diagnosis: Likely urinary tract infection, bacterial vaginosis, trichomoniasis, cervicitis, vaginitis, cystitis and other Discharge Plan Discharge Clinical Impression: Concern about STD in female without diagnosis Patient Disposition: Home, Self-Care Condition: Stable Instructions: Antibiotic Form, Sexually Transmitted Diseases (ED), Safe Sex Practices (ED) Additional Instructions: Your urine has been sent off to test for gonorrhea, chlamydia, and trichomonas infections. You will be called if any of your tests come back positive. These tests can take up to 5 days to come back. Prescription for Flagyl has been sent to your pharmacy to cover for trichomonas. Do not drink alcohol while taking the medicine. If your tests come back positive for gonorrhea or chlamydia you will need further treatment. You will need to notify any partners that you have so they can be tested and treated. To avoid reinfection, you are advised to abstain from sexual intercourse for 7 days (and any symptoms have resolved) to prevent transmission. If your tests come back negative and you are still experiencing symptoms, please follow-up with your PCP or Obgyn for further evaluation and treatment. If your symptoms worsen to include fever, abdominal pain, or back pain, please go to the hospital immediately. Patient Language: Greenlandic Prescriptions: New metronidazole 500 mg tablet 500 mg PO Q12H 7 Days Qty: 14 0RF No Action omeprazole 20 mg Tablet,Delayed Release (Dr/Ec) 20 mg PO DAILY Follow-up/Referrals: UNKNOWN,DOCTOR [Primary Care Provider] -
[2024-04-27 19:07] LABS: Trichomonas Vag PCR NOT DETECTED (NOT DETECTE)
[2024-04-27 19:30] LABS: Chlamydia trachomatis NOT DETECTED (NOT DETECTE); Neisseria gonorrhoeae PCR NOT DETECTED (NOT DETECTE)
== END 2024-04-26 18:40 | disposition home or self-care (01) ==
PROVIDERS: Emergency Provider Nurse Practitioner Family
DX: Z20.2 Contact with and (suspected) exposure to infections with a predominantly sexual mode of transmission (principal); F17.210 Nicotine dependence, cigarettes, uncomplicated; F12.90 Cannabis use, unspecified, uncomplicated; F15.90 Other stimulant use, unspecified, uncomplicated
CPT/HCPCS: 87491; 87591; 87661; 99213; G0463